=== PATIENT | male | born 1980 | race African-American/Black ===

== ENCOUNTER → 2021-09-22 16:21 | Outpatient (CLI) | payer OTHER, SELFPAY ==
--- NOTE | 2021-09-22 16:24 | DI.RAD.S_ITS ---
PROCEDURE: XR ANKLE RT MIN 3V INDICATIONS: ankle injury TECHNIQUE: 3 views of the ankle were acquired. COMPARISON: None. FINDINGS: Bones: No fractures or dislocations. Ankle mortise is normally aligned. No suspicious bony lesions. The talar dome demonstrates no guerrero abnormality. Soft tissues: Lglg-wk-owyqlyly generalized soft tissue swelling is seen. IMPRESSION: Soft tissue swelling is seen, without an acute bony abnormality seen by plain film. If there is point tenderness (or other clinical suspicion for a fracture not seen on these images) then a dedicated CT or a short-term followup plain film series could be considered for further evaluation, as clinically appropriate. Dictated by: Angelo Peña M.D. on 09/22/2021 at 16:00 Approved by: Angelo Peña M.D. on 09/22/2021 at 16:00
== END ==
PROVIDERS: Referring Provider Nurse Practitioner Family; Visit Provider Nurse Practitioner Family
DX: S99.911A Unspecified injury of right ankle, initial encounter (principal); X58.XXXA Exposure to other specified factors, initial encounter; M79.89 Other specified soft tissue disorders
CPT/HCPCS: 73610